=== PATIENT | female | born 1995 | race Hispanic/Latino ===

== ENCOUNTER 2017-06-12 21:36 | Emergency (ER) | payer MEDICAID ==
[2017-06-12] MEDS ORDERED: ROBITUSSIN ONE (23:26)
[2017-06-12] MEDS ORDERED: TESSALON PERLES PO ONE ×2 (23:31→23:34)
[2017-06-12] MEDS ORDERED: ROBITUSSIN PO ONE (23:34)
--- NOTE | 2017-06-13 00:02 | XRay Report ---
FINAL REPORT PROCEDURE: XR CHEST ROUTINE 2V TECHNIQUE: PA and lateral chest radiographs were obtained. CPT 24683 HISTORY: Cough, consent signed, get report COMPARISON: No prior studies are available for comparison. FINDINGS: Heart: Normal. Mediastinum/Vessels: Normal. Lungs/Pleural space: Normal. Bony thorax: No acute osseous abnormality. Other: IMPRESSION: Normal examination.
--- NOTE | 2017-06-13 04:37 | Emergency Department Report ---
- General Chief Complaint: Upper Respiratory Infection Stated Complaint: SORE THROAT Time Seen by Provider: 06/13/17 04:30 Source: patient Mode of arrival: Ambulatory Limitations: No Limitations - History of Present Illness MD Complaint: cough, sore throat, nasal congestion -: Gradual, days(s) ( 10 days) Severity: severe Severity scale (0 -10): 6 Quality: burning, aching Consistency: constant Improves With: NSAID Worsens With: activity Context: sick contacts Associated Symptoms: rhinorrhea, nasal congestion, cough, other (laryngitis) - Related Data Previous Rx's Medication Instructions Recorded Last Taken Type Pnv 21/Iron Ps,Heme Ppep/Folic 1 each PO QDAY #30 tablet 11/20/13 Unknown Rx [Prefera Ob Tablet] Azithromycin [Zithromax Tri-Stef] 500 mg PO DAILY #3 tablet 06/13/17 Unknown Rx methylPREDNISolone [Medrol] 4 mg PO DAILY #1 tab.ds.pk 06/13/17 Unknown Rx Allergies Allergy/AdvReac Type Severity Reaction Status Date / Time oranges Allergy Rash Uncoded 11/19/13 21:01 ED Review of Systems ROS: Stated complaint: SORE THROAT Other details as noted in HPI Comment: All other systems reviewed and negative Constitutional: no symptoms reported, see HPI Eyes: as per HPI ENT: as per HPI, throat pain Respiratory: see HPI, cough Cardiovascular: as per HPI Endocrine: no symptoms reported Gastrointestinal: as per HPI Genitourinary: as per HPI Musculoskeletal: as per HPI Skin: as per HPI Neurological: as per HPI Psychiatric: as per HPI Hematological/Lymphatic: as per HPI ED Past Medical Hx - Past Medical History Previous Medical History?: No - Surgical History Past Surgical History?: Yes Additional Surgical History: D&C (12/2013) - Social History Smoking Status: Never Smoker Substance Use Type: None - Medications Home Medications: Home Medications Medication Instructions Recorded Confirmed Last Taken Type Pnv 21/Iron Ps,Heme Ppep/Folic 1 each PO QDAY #30 tablet 11/20/13 Unknown Rx [Prefera Ob Tablet] Azithromycin [Zithromax Tri-Stef] 500 mg PO DAILY #3 tablet 06/13/17 Unknown Rx methylPREDNISolone [Medrol] 4 mg PO DAILY #1 tab.ds.pk 06/13/17 Unknown Rx ED Physical Exam - General Limitations: No Limitations General appearance: alert, in no apparent distress - Head Head exam: Present: atraumatic, normocephalic - Eye Eye exam: Present: normal appearance - ENT ENT exam: Present: mucous membranes dry, TM's normal bilaterally, normal external ear exam, other (laryngitis noted. Oropharynx red ) - Neck Neck exam: Present: normal inspection - Respiratory Respiratory exam: Present: normal lung sounds bilaterally. Absent: respiratory distress - Cardiovascular Cardiovascular Exam: Present: regular rate, normal rhythm. Absent: systolic murmur, diastolic murmur, rubs, gallop - GI/Abdominal GI/Abdominal exam: Present: soft, normal bowel sounds - Extremities Exam Extremities exam: Present: normal inspection - Back Exam Back exam: Present: normal inspection - Neurological Exam Neurological exam: Present: alert, oriented X3 - Psychiatric Psychiatric exam: Present: normal affect, normal mood - Skin Skin exam: Present: warm, dry, intact, normal color. Absent: rash ED Course Vital Signs 06/12/17 06/13/17 23:30 03:56 Temperature 98.5 F 98.2 F Pulse Rate 82 79 Respiratory 18 16 Rate Blood Pressure 105/63 110/63 [Right] O2 Sat by Pulse 97 99 Oximetry ED Medical Decision Making - Radiology Data Radiology results: report reviewed - Medical Decision Making Strep negative. Patient has had upper respiratory infection for 10 days with laryngitis. Patient Stable to be discharged home - Differential Diagnosis uri. Pharyngitis, otitis, laryngitis Critical care attestation.: If time is entered above; I have spent that time in minutes in the direct care of this critically ill patient, excluding procedure time. ED Disposition Clinical Impression: URI (upper respiratory infection), Laryngitis Disposition: TO HOME OR SELFCARE Is pt being admited?: No Does the pt Need Aspirin: No Condition: Stable Instructions: Upper Respiratory Infection (ED) Additional Instructions: Patient take Tylenol or Advil when necessary for pain and fever. pt to take prescription medications as directed. Patient to return to ER if condition worsens. Patient increase water. Prescriptions: Azithromycin [Zithromax Tri-Stef] 500 mg PO DAILY #3 tablet methylPREDNISolone [Medrol] 4 mg PO DAILY #1 tab.ds.pk Referrals: PRIMARY CARE, [Primary Care Provider] - 3-5 Days Time of Disposition: 04:47
[2017-06-13 04:54] VITALS: BP 92/55
== END 2017-06-13 04:53 | disposition home or self-care (01) ==
LOC: ED 21:36
DX: J06.9 Acute upper respiratory infection, unspecified (principal); J04.0 Acute laryngitis; Z91.018 Allergy to other foods
CPT/HCPCS: 71020; 87116; 87430